=== PATIENT | female | born 1940 | race Caucasian/White ===

== ENCOUNTER → 2017-09-11 | Outpatient (CLI) | payer MEDICARE ==
[~2017-09-11] MED LIST: AEC81 PO; BIMA12.5OS OU; CALC600T12 PO; ERGO400C PO; ISOS30TA6 PO; LORA10TA7 PO; MULT-1203 PO; NITR0.4T SL; PENT100C9 PO; PRAV20TA4 PO; TAMO20TA4 PO; [UNRECOGNIZED DRUG - CODE] OS; [UNRECOGNIZED DRUG - OTHER] PO
== END | disposition home or self-care (01) ==
LOC: RAH 08:54
PROVIDERS: ATTEND Internal Medicine
DX: R92.8 Other abnormal and inconclusive findings on diagnostic imaging of breast (principal); I25.10 Atherosclerotic heart disease of native coronary artery without angina pectoris; I11.0 Hypertensive heart disease with heart failure; I50.43 Acute on chronic combined systolic (congestive) and diastolic (congestive) heart failure; K21.9 Gastro-esophageal reflux disease without esophagitis; E78.5 Hyperlipidemia, unspecified; Z85.3 Personal history of malignant neoplasm of breast; Z98.890 Other specified postprocedural states
CPT/HCPCS: 77065

== ENCOUNTER → 2018-09-15 | Outpatient (CLI) | payer MEDICARE | END | disposition home or self-care (01) | LOC: RAH 14:26 | PROVIDERS: ATTEND Internal Medicine | DX: R92.8 Other abnormal and inconclusive findings on diagnostic imaging of breast (principal); Z85.3 Personal history of malignant neoplasm of breast | CPT/HCPCS: 77065 ==

== ENCOUNTER → 2019-01-06 | Outpatient (CLI) | payer MEDICARE | END | disposition home or self-care (01) | LOC: RAH 08:53 | PROVIDERS: ATTEND Internal Medicine Medical Oncology | DX: K76.0 Fatty (change of) liver, not elsewhere classified (principal); N28.1 Cyst of kidney, acquired | CPT/HCPCS: 76700 ==

== ENCOUNTER 2019-05-16 12:29 | Emergency (ER) | payer MEDICARE ==
[2019-05-17] MEDS ORDERED: BIOT5000 PO (23:02)
[2019-05-17] MEDS ORDERED: OMEG1CAP45 PO (23:02)
[2019-05-17] MEDS ORDERED: CALC-190 PO (23:02)
[2019-05-17] MEDS ORDERED: CHOL100040 PO (23:02)
== END 2019-05-16 15:40 | disposition home or self-care (01) ==
LOC: EDH 12:29
DX: S76.212A Strain of adductor muscle, fascia and tendon of left thigh, initial encounter (principal); I10 Essential (primary) hypertension; Z87.891 Personal history of nicotine dependence; Z98.890 Other specified postprocedural states; X58.XXXA Exposure to other specified factors, initial encounter; Y93.89 Activity, other specified; Y92.89 Other specified places as the place of occurrence of the external cause; Y99.8 Other external cause status
CPT/HCPCS: 72170

== ENCOUNTER 2019-07-16 06:52 | Day surgery (SDC) | payer MEDICARE ==
[2019-07-14 09:05] LABS: BASOPHILS % (AUTO) 0.2 % (0.0-5.0); EOSINOPHILS % (AUTO) 3.4 % (0.0-8.0); HEMATOCRIT 36.8 % (36-48); LYMPHOCYTES % (AUTO) 33.9 % (21.0-51.0); MEAN CORPUSCULAR HEMOGLOBIN 31.1 pg (27.0-33.0); MEAN CORPUSCULAR HGB CONC 32.1 g/dL (32.0-36.0); MEAN CORPUSCULAR VOLUME 96.8 fL (79-99); MONOCYTES % (AUTO) 28.7 % (3.0-13.0); NEUTROPHILS % (AUTO) 33.2 % (40.0-77.0); PLATELET COUNT (AUTO) 248 K/uL (130-400); RED CELL DISTRIBUTION WIDTH 16.8 % (11.0-15.5); WHITE BLOOD COUNT (AUTO) 5.2 K/uL (4.8-10.8)
[2019-07-14 09:16] LABS: INR 1.13 (0.85-1.15); PARTIAL THROMBOPLASTIN TIME 29.2 SEC (26.3-35.5); PROTHROMBIN TIME 11.8 SEC (9.6-11.6)
[2019-07-14 09:17] VITALS: BP 130/79
[2019-07-14 09:24] LABS: CREATININE 1.2 mg/dL (0.5-1.5); POTASSIUM 4.7 mmol/L (3.5-5.1)
[2019-07-14 09:31] LABS: APPEARANCE,URINE Clear (CLEAR); BILIRUBIN,URINE Negative (NEGATIVE); COLOR,URINE Dark Yellow (YELLOW); GLUCOSE, URINE (UA) Negative (NEGATIVE); KETONES,URINE Negative (NEGATIVE); LEUKOCYTE ESTERASE ,URINE Small (NEGATIVE); NITRATE,URINE Negative (NEGATIVE); OCCULT BLOOD,URINE Trace (NEGATIVE); PROTEIN,URINE Trace mg/dL (NEGATIVE); UROBILINOGEN,URINE 0.2 mg/dL (0.2-1.0)
[2019-07-14 09:45] LABS: BACTERIA,URINE Rare /HPF (None Seen); RBC,URINE 0-1 /HPF (0-1); SQUAMOUS EPITHELIAL CELL,UR 0-2 /HPF (0-2); YEAST,URINE BUDDING Few /HPF (None Seen)
--- NOTE | 2019-07-14 13:16 | NUR ---
PER EDUARDO LYNCH. ABNORMAL LABS OK NO NEW ORDERS AT THIS TIME.
[2019-07-16] VITALS (10 sets, daily range): BP systolic 112–141; BP diastolic 41–87
[~2019-07-16] VITALS: Ht 168.9 cm; Wt 69.8 kg
[~2019-07-16 06:52] MED LIST changes: +ANTI1CAP5 PO; +BIOT5000 PO; +CALC-190 PO; -CALC600T12 PO; -ERGO400C PO; -ISOS30TA6 PO; -MULT-1203 PO; -NITR0.4T SL; +OMEG1CAP45 PO; -PENT100C9 PO; -TAMO20TA4 PO; +TIMO5DRO35 OS; -[UNRECOGNIZED DRUG - CODE] OS; -[UNRECOGNIZED DRUG - OTHER] PO
[2019-07-16] MEDS ORDERED: SODIUM CHLORIDE 0.9% 1000ML 1,000 ML IV ONE (08:18)
[2019-07-16] MEDS ORDERED: HEPARIN SODIUM 1000UNIT/ML 10ML VIAL ONE (08:46)
[2019-07-16] MEDS ORDERED: IOHEXOL-350 50ML VIAL IV ONE (08:46)
[2019-07-16] MEDS ORDERED: SODIUM BICARB 50MEQ 50ML VIAL ONE (08:46)
[2019-07-16] MEDS ORDERED: NITROGLYCERIN 2 MG/VIAL VIAL IV ONE (08:47)
[2019-07-16] MEDS ORDERED: FENTANYL CITRATE PF 50 MCG/1 ML 2ML VIAL ONE (08:47)
[2019-07-16] MEDS ORDERED: MIDAZOLAM HCL 1 MG/ML 2ML VIAL ONE (08:47)
[2019-07-16] MEDS ORDERED: IOHEXOL 350 MG/ML 100ML INFUS..BTL IV ONE ×2 (08:47→09:48)
[2019-07-16] MEDS ORDERED: LIDOCAINE HCL 2% 20ML ONE (08:47)
[2019-07-16] MEDS ORDERED: BIVALIRUDIN 250 MG/VIAL IV ONE (09:14)
--- NOTE | 2019-07-16 15:30 | NUR ---
REPORT GIVEN BY WASHINGTON PRINCE RN PT DRESSING DRY AND INTACT
--- NOTE | 2019-07-16 16:00 | NUR ---
PT LEFT VIA WHEELCHAIR IN PVT CAR, D/C INSTRUCTION GIVEN TO SPOUSE WITH F/U APPT. V/S STABLE DRESSING DRY AND INTACT DP PRESENT BILATAL.
== END 2019-07-16 16:00 | disposition home or self-care (01) ==
LOC: DAH 06:52
PROVIDERS: ATTEND Internal Medicine Cardiovascular Disease
DX: I11.0 Hypertensive heart disease with heart failure (principal); I50.22 Chronic systolic (congestive) heart failure; I25.810 Atherosclerosis of coronary artery bypass graft(s) without angina pectoris; I25.2 Old myocardial infarction; E78.5 Hyperlipidemia, unspecified; K21.9 Gastro-esophageal reflux disease without esophagitis; M79.10 Myalgia, unspecified site; Z95.1 Presence of aortocoronary bypass graft; Z95.810 Presence of automatic (implantable) cardiac defibrillator; Z95.2 Presence of prosthetic heart valve; Z86.19 Personal history of other infectious and parasitic diseases; Z98.890 Other specified postprocedural states; Z79.82 Long term (current) use of aspirin; Z79.899 Other long term (current) drug therapy; Z82.49 Family history of ischemic heart disease and other diseases of the circulatory system
CPT/HCPCS: 36415; 71045; 80048; 81001; 85025; 85610; 85730; 93005; 93455; 93567; A4215 ×2; A4216; A4221; A4222; A4223 ×3; A4606; A4663; C1760; C1894 ×2; J1644; J2250; J3010; J3490 ×3; J7030; Q9965; Q9967 ×3; 99156; 99157; J0583

== ENCOUNTER → 2019-09-21 | Outpatient (CLI) | payer MEDICARE | END | disposition home or self-care (01) | LOC: RAH 09:59 | PROVIDERS: ATTEND Internal Medicine Medical Oncology | DX: C50.912 Malignant neoplasm of unspecified site of left female breast (principal); Z85.3 Personal history of malignant neoplasm of breast | CPT/HCPCS: 77065 ==

== ENCOUNTER → 2020-10-03 | Outpatient (CLI) | payer MEDICARE | END | disposition home or self-care (01) | LOC: RAH 10:35 | PROVIDERS: ATTEND Internal Medicine Medical Oncology | DX: C50.411 Malignant neoplasm of upper-outer quadrant of right female breast (principal); Z90.11 Acquired absence of right breast and nipple | CPT/HCPCS: 77065 ==

== ENCOUNTER → 2021-04-17 | Outpatient (CLI) | payer MEDICARE | END | disposition home or self-care (01) | LOC: SHCH 09:51 | PROVIDERS: ATTEND Internal Medicine Cardiovascular Disease | DX: I08.1 Rheumatic disorders of both mitral and tricuspid valves (principal); I25.10 Atherosclerotic heart disease of native coronary artery without angina pectoris; I10 Essential (primary) hypertension; E78.5 Hyperlipidemia, unspecified; Z95.2 Presence of prosthetic heart valve | CPT/HCPCS: 93306; 93356 ==

== ENCOUNTER → 2021-07-25 | Outpatient (CLI) | payer MEDICARE | END | disposition home or self-care (01) | LOC: RAH 13:38 | PROVIDERS: ATTEND Internal Medicine Medical Oncology | DX: E04.2 Nontoxic multinodular goiter (principal); R06.09 Other forms of dyspnea; R91.8 Other nonspecific abnormal finding of lung field; M47.815 Spondylosis without myelopathy or radiculopathy, thoracolumbar region | CPT/HCPCS: 71046; 76536 ==

== ENCOUNTER → 2022-03-05 | Outpatient (CLI) | payer MEDICARE ==
[~2022-03-05] MED LIST changes: +EZET10TA13 PO; +METO50TA9 PO; -PRAV20TA4 PO; +SIMV-342 PO; +SPIR25TA6 PO; +TORS10TA18 PO
[2022-03-05 12:45] LABS: CREATININE 1.6 mg/dL (0.5-1.5); MAGNESIUM 2.6 mg/dL (1.80-2.40); POTASSIUM 4.2 mmol/L (3.5-5.1)
== END | disposition home or self-care (01) ==
LOC: LAB 10:43
PROVIDERS: ATTEND Internal Medicine Cardiovascular Disease
DX: I11.0 Hypertensive heart disease with heart failure (principal); I50.22 Chronic systolic (congestive) heart failure
CPT/HCPCS: 36415; 80048; 83735; 83880

== ENCOUNTER → 2022-04-01 | Outpatient (CLI) | payer MEDICARE ==
[~2022-04-01] MED LIST changes: -BIMA12.5OS OU; +BIMA2.5D4 OU; +CEPH500B PO; +LUTE40CA PO; +PRAV20TA4 PO; -SIMV-342 PO; +SPIR25TA PO; -SPIR25TA6 PO; -TORS10TA18 PO; +TORS40TA PO; +[UNRECOGNIZED DRUG - CODE] SL
[2022-04-01 12:21] LABS: BASOPHILS % (AUTO) 0.5 % (0.0-5.0); EOSINOPHILS % (AUTO) 1.3 % (0.0-8.0); HEMATOCRIT 35.6 % (36-48); LYMPHOCYTES % (AUTO) 28.8 % (21.0-51.0); MEAN CORPUSCULAR HEMOGLOBIN 33.7 pg (27.0-33.0); MEAN CORPUSCULAR HGB CONC 34.3 g/dL (32.0-36.0); MEAN CORPUSCULAR VOLUME 98.3 fL (79-99); NEUTROPHILS % (AUTO) 41.8 % (40.0-77.0); PLATELET COUNT (AUTO) 311 K/uL (130-400); RED BLOOD CELL COUNT(AUTO) 3.62 MIL/uL (4.00-5.50); RED CELL DISTRIBUTION WIDTH 13.2 % (11.0-15.5); WHITE BLOOD COUNT (AUTO) 6.2 K/uL (4.8-10.8)
[2022-04-01 12:44] LABS: ALBUMIN 4.1 g/dL (3.5-5.0); CREATININE 1.7 mg/dL (0.5-1.5); POTASSIUM 3.5 mmol/L (3.5-5.1); TOTAL PROTEIN, SERUM 8.8 g/dL (6.0-8.3)
[2022-04-01 13:05] LABS: B-TYPE NATRIURETIC PEPTIDE 65 pg/mL (0-100)
== END | disposition home or self-care (01) ==
LOC: LAB 08:53
PROVIDERS: ATTEND Internal Medicine Cardiovascular Disease
DX: I50.22 Chronic systolic (congestive) heart failure (principal); Z95.2 Presence of prosthetic heart valve
CPT/HCPCS: 36415; 80053; 80061; 83880; 85025

== ENCOUNTER → 2022-04-30 | Outpatient (CLI) | payer MEDICARE | END | disposition home or self-care (01) | LOC: RAH 10:32 | PROVIDERS: ATTEND Internal Medicine Endocrinology, Diabetes & Metabolism | DX: E04.2 Nontoxic multinodular goiter (principal) | CPT/HCPCS: 76536 ==

== ENCOUNTER → 2022-05-13 | Outpatient (CLI) | payer MEDICARE ==
[2022-05-13 15:06] LABS: CREATININE 1.7 mg/dL (0.5-1.5); POTASSIUM 3.8 mmol/L (3.5-5.1)
== END | disposition home or self-care (01) ==
LOC: LAB 13:51
PROVIDERS: ATTEND Internal Medicine Cardiovascular Disease
DX: I11.0 Hypertensive heart disease with heart failure (principal); I50.32 Chronic diastolic (congestive) heart failure
CPT/HCPCS: 36415; 80048; 83880

== ENCOUNTER → 2022-10-11 | Outpatient (CLI) | payer MEDICARE ==
[~2022-10-11] MED LIST changes: -TIMO5DRO35 OS; +TIMO5DRO47 OS
[2022-10-11 12:53] LABS: CREATININE 1.5 mg/dL (0.5-1.5); MAGNESIUM 2.4 mg/dL (1.80-2.40); POTASSIUM 4.4 mmol/L (3.5-5.1)
== END | disposition home or self-care (01) ==
LOC: LAB 08:08
PROVIDERS: ATTEND Internal Medicine Cardiovascular Disease
DX: I11.0 Hypertensive heart disease with heart failure (principal); I50.32 Chronic diastolic (congestive) heart failure
CPT/HCPCS: 36415; 80048; 83735; 83880

== ENCOUNTER → 2023-01-14 | Outpatient (CLI) | payer MEDICARE | END | disposition home or self-care (01) | LOC: RAH 13:49 | PROVIDERS: ATTEND Internal Medicine Medical Oncology | DX: D24.2 Benign neoplasm of left breast (principal); R92.1 Mammographic calcification found on diagnostic imaging of breast; Z85.3 Personal history of malignant neoplasm of breast | CPT/HCPCS: 77065 ==

== ENCOUNTER → 2023-04-08 | Outpatient (CLI) | payer MEDICARE ==
[~2023-04-08] MED LIST changes: -EZET10TA13 PO; +EZET10TA81 PO
[2023-04-08 12:24] LABS: BASOPHILS # (AUTO) 0.04 K/uL (0.00-0.20); BASOPHILS % (AUTO) 0.7 % (0.0-5.0); EOSINOPHILS # (AUTO) 0.14 K/uL (0.00-0.70); EOSINOPHILS % (AUTO) 2.4 % (0.0-8.0); HEMATOCRIT 41.9 % (36-48); IMMATURE GRANULOCYTE ABSOLUTE 0.03 K/uL (0-1); LYMPHOCYTES # (AUTO) 1.8 K/uL (1.0-4.8); LYMPHOCYTES % (AUTO) 30.3 % (21.0-51.0); MEAN CORPUSCULAR HEMOGLOBIN 34.1 pg (27.0-33.0); MEAN CORPUSCULAR HGB CONC 33.7 g/dL (32.0-36.0); MEAN CORPUSCULAR VOLUME 101.5 fL (79-99); MONOCYTES # (AUTO) 1.6 K/uL (0.1-1.0); NEUTROPHILS # (AUTO) 2.3 K/uL (1.8-7.7); NEUTROPHILS % (AUTO) 39.1 % (40.0-77.0); PLATELET COUNT (AUTO) 180 K/uL (130-400); RED BLOOD CELL COUNT(AUTO) 4.13 MIL/uL (4.00-5.50); RED CELL DISTRIBUTION WIDTH 13.8 % (11.0-15.5); WHITE BLOOD COUNT (AUTO) 5.8 K/uL (4.8-10.8)
[2023-04-08 12:52] LABS: BAND NEUTROPHILS % (MANUAL) 8 % (0-2); BASOPHILS % (MANUAL) 1 % (0-2); EOSINOPHILS % (MANUAL) 2 % (1-6); LYMPHOCYTES % (MANUAL) 30 % (22-44); MAN.DIFF COMMENT-IMPRESSION MANUAL DIFFERENTIAL; MONOCYTES % (MANUAL) 32 % (2-9); PLATELET MORPHOLOGY COMMENT ADEQUATE; SEGMENTED NEUTROPHILS % 27 % (40-70); TOTAL CELLS COUNTED 100; WBC MORPHOLOGY CONSISTENT W/DIFF
[2023-04-08 12:54] LABS: ALBUMIN 4.4 g/dL (3.5-5.0); BILIRUBIN,TOTAL 0.5 mg/dL (0.2-1.0); CREATININE 1.3 mg/dL (0.5-1.5); POTASSIUM 4.3 mmol/L (3.5-5.1); TOTAL PROTEIN, SERUM 8.1 g/dL (6.0-8.3)
== END | disposition home or self-care (01) ==
LOC: LAB 08:58
PROVIDERS: ATTEND Internal Medicine Cardiovascular Disease
DX: I11.0 Hypertensive heart disease with heart failure (principal); E78.5 Hyperlipidemia, unspecified; I50.42 Chronic combined systolic (congestive) and diastolic (congestive) heart failure
CPT/HCPCS: 36415; 80053; 80061; 83880; 85025

== ENCOUNTER → 2023-04-29 | Outpatient (CLI) | payer MEDICARE | END | disposition home or self-care (01) | LOC: RAH 12:23 | PROVIDERS: ATTEND Internal Medicine Endocrinology, Diabetes & Metabolism | DX: E04.2 Nontoxic multinodular goiter (principal) | CPT/HCPCS: 76536 ==

== ENCOUNTER 2023-08-12 05:54 | Day surgery (SDC) | payer MEDICARE ==
[2023-08-08 14:07] LABS: BASOPHILS # (AUTO) 0.04 K/uL (0.00-0.20); BASOPHILS % (AUTO) 0.7 % (0.0-5.0); EOSINOPHILS # (AUTO) 0.28 K/uL (0.00-0.70); EOSINOPHILS % (AUTO) 5.2 % (0.0-8.0); IMMATURE GRANULOCYTE ABSOLUTE 0.02 K/uL (0-1); LYMPHOCYTES # (AUTO) 1.7 K/uL (1.0-4.8); LYMPHOCYTES % (AUTO) 32.2 % (21.0-51.0); MEAN CORPUSCULAR HEMOGLOBIN 33.8 pg (27.0-33.0); MEAN CORPUSCULAR VOLUME 99.5 fL (79-99); MONOCYTES # (AUTO) 1.4 K/uL (0.1-1.0); MONOCYTES % (AUTO) 25.5 % (3.0-13.0); NEUTROPHILS # (AUTO) 1.9 K/uL (1.8-7.7); PLATELET COUNT (AUTO) 143 K/uL (130-400); RED BLOOD CELL COUNT(AUTO) 4.02 MIL/uL (4.00-5.50); RED CELL DISTRIBUTION WIDTH 13.6 % (11.0-15.5); WHITE BLOOD COUNT (AUTO) 5.4 K/uL (4.8-10.8)
[2023-08-08 14:19] VITALS: BP 150/70; PULSE 79; RESP 18
[2023-08-08 14:23] LABS: INR 0.94 (0.85-1.15); PROTHROMBIN TIME 11.1 SEC (9.6-11.6)
[2023-08-08 14:24] LABS: PARTIAL THROMBOPLASTIN TIME 29.1 SEC (26.3-35.5)
[2023-08-08 14:25] LABS: CREATININE 1.4 mg/dL (0.5-1.5); POTASSIUM 4.2 mmol/L (3.5-5.1)
[~2023-08-12] VITALS: Ht 167.6 cm; Wt 73.5 kg
[2023-08-12] VITALS (10 sets, daily range): BP systolic 107–133; BP diastolic 45–70; PULSE 60–83; RESP 14–15
[~2023-08-12 05:54] MED LIST changes: -AEC81 PO; -ANTI1CAP5 PO; +ASPI-1443 PO; -BIOT5000 PO; +BIOTIN PO; -CALC-190 PO; +CALC-866 PO; -CEPH500B PO; +EMPA10TA PO; +EZET10TA48 PO; -EZET10TA81 PO; +FLUT15.845 NS; -METO50TA9 PO; +MULT-1367 PO; -OMEG1CAP45 PO; +PRAS25CA9 PO; -PRAV20TA4 PO; +PRAV40TA3 PO; -SPIR25TA PO; +SPIR25TA6 PO; -TIMO5DRO47 OS; +TIMO5DRO47 OU; +TORS20TA4 PO; -TORS40TA PO; +VITAMIN K2 PO; -[UNRECOGNIZED DRUG - CODE] SL
[2023-08-12] MEDS: 0.9%NACL 1000ML 1,000 ML IV ONE (06:29)
[2023-08-12] MEDS ORDERED: LIDOCAINE HCL 1% MDV 50ML VIAL ONE (07:13)
[2023-08-12] MEDS ORDERED: MIDAZOLAM HCL 1 MG/ML 2ML VIAL ONE ×2 (07:14→07:51)
[2023-08-12] MEDS ORDERED: MEPERIDINE-PF 25 MG/ML SYG ONE ×2 (07:14→07:51)
[2023-08-12] MEDS ORDERED: CEFAZOLIN SODIUM 1 GM VIAL ONE ×2 (07:14→07:34)
[2023-08-12] MEDS ORDERED: BUPIVACAINE/PF 0.25% 30ML VIAL IJ ONE (07:29)
[2023-08-12] MEDS ORDERED: BACITRACIN 1 EACH PACKET TP ONE (08:35)
[2023-08-12] MEDS ORDERED: TRAM50TA4 PO (08:56)
[2023-08-12] MEDS ORDERED: ACETAMINOPHEN WITH CODEINE 1 TAB TAB PO PRN (09:00)
[2023-08-12] MEDS ORDERED: ACETAMINOPHEN 500 MG TABLET PO PRN (09:00)
== END 2023-08-12 12:05 | disposition home or self-care (01) ==
LOC: DAH 05:54
PROVIDERS: ATTEND Internal Medicine Cardiovascular Disease
DX: Z45.02 Encounter for adjustment and management of automatic implantable cardiac defibrillator (principal); I49.01 Ventricular fibrillation; I49.5 Sick sinus syndrome; I11.0 Hypertensive heart disease with heart failure; I50.43 Acute on chronic combined systolic (congestive) and diastolic (congestive) heart failure; I25.2 Old myocardial infarction; E78.5 Hyperlipidemia, unspecified; Z79.01 Long term (current) use of anticoagulants; Z79.899 Other long term (current) drug therapy; Z86.73 Personal history of transient ischemic attack (TIA), and cerebral infarction without residual deficits; Z95.5 Presence of coronary angioplasty implant and graft; Z90.11 Acquired absence of right breast and nipple; Z82.49 Family history of ischemic heart disease and other diseases of the circulatory system; Z98.890 Other specified postprocedural states; Z87.891 Personal history of nicotine dependence; Z95.2 Presence of prosthetic heart valve; Z79.82 Long term (current) use of aspirin
CPT/HCPCS: 80048; 85025; 85610; 85730; 36415; 93005; 33264; 82948 ×2; C1882; J0690 ×2; J7030; J0665; J2250 ×2; J2175 ×2; J3490; A4215; A6251; A4222; A4221; A4663; A4216; A6258; A4606; A4223 ×3; 99156; 99157

== ENCOUNTER → 2024-01-16 | Outpatient (CLI) | payer MEDICARE ==
[~2024-01-16] MED LIST changes: -FLUT15.845 NS; +TRAM50TA4 PO
== END | disposition home or self-care (01) ==
LOC: RAH 07:39
PROVIDERS: ATTEND Internal Medicine Medical Oncology
DX: R92.1 Mammographic calcification found on diagnostic imaging of breast (principal); R92.322 Mammographic fibroglandular density, left breast; R92.30 Dense breasts, unspecified; Z85.3 Personal history of malignant neoplasm of breast
CPT/HCPCS: 77065

== ENCOUNTER → 2024-04-28 | Outpatient (CLI) | payer MEDICARE ==
--- NOTE | 2024-04-28 17:28 | HMCIMG ---
US THYROID/NECK HISTORY: Goiter COMPARISON: 04/29/2023 TECHNIQUE: Thyroid ultrasound study was performed. FINDINGS: Right thyroid lobe measures 3.6 x 1.4 x 1.1 cm. Left thyroid lobe measures 3.3 x 1.4 x 1.1 cm. Thyroid gland is heterogeneous. There are bilateral thyroid cysts and nodules with the largest on the right measuring 7 mm and on the left measuring 6 mm. There is also a left upper pole complex thyroid nodule measuring 1.2 x 1.5 x 2.1 cm unchanged in size. IMPRESSION: 1. Bilateral thyroid cysts and nodules grossly unchanged in size.
== END | disposition home or self-care (01) ==
LOC: RAH 10:33
PROVIDERS: ATTEND Internal Medicine Endocrinology, Diabetes & Metabolism
DX: E04.2 Nontoxic multinodular goiter (principal)
CPT/HCPCS: 76536

== ENCOUNTER → 2024-06-21 | Outpatient (CLI) | payer MEDICARE ==
[2024-06-21 14:22] LABS: CREATININE 1.3 mg/dL (0.5-1.0); POTASSIUM 4.4 mmol/L (3.5-5.1)
== END | disposition home or self-care (01) ==
LOC: LAB 10:38
PROVIDERS: ATTEND Internal Medicine Cardiovascular Disease
DX: I25.10 Atherosclerotic heart disease of native coronary artery without angina pectoris (principal); Z95.2 Presence of prosthetic heart valve
CPT/HCPCS: 36415; 80048; 83735; 83880

== ENCOUNTER → 2024-09-20 | Outpatient (CLI) | payer MEDICARE ==
[2024-09-20 12:14] LABS: BASOPHILS # (AUTO) 0.03 K/uL (0.00-0.20); BASOPHILS % (AUTO) 0.5 % (0.0-5.0); EOSINOPHILS # (AUTO) 0.36 K/uL (0.00-0.70); HEMATOCRIT 41.3 % (36-48); IMMATURE GRANULOCYTE ABSOLUTE 0.01 K/uL (0-1); LYMPHOCYTES # (AUTO) 1.4 K/uL (1.0-4.8); LYMPHOCYTES % (AUTO) 23.4 % (21.0-51.0); MEAN CORPUSCULAR HEMOGLOBIN 33.9 pg (27.0-33.0); MEAN CORPUSCULAR HGB CONC 32.4 g/dL (32.0-36.0); MEAN CORPUSCULAR VOLUME 104.6 fL (79-99); MONOCYTES # (AUTO) 1.4 K/uL (0.1-1.0); MONOCYTES % (AUTO) 23.2 % (3.0-13.0); NEUTROPHILS # (AUTO) 2.8 K/uL (1.8-7.7); NEUTROPHILS % (AUTO) 46.7 % (40.0-77.0); PLATELET COUNT (AUTO) 213 K/uL (130-400); RED BLOOD CELL COUNT(AUTO) 3.95 MIL/uL (4.00-5.50); RED CELL DISTRIBUTION WIDTH 13.1 % (11.0-15.5)
[2024-09-20 12:36] LABS: ALBUMIN 4.6 g/dL (3.5-5.0); BILIRUBIN,TOTAL 0.8 mg/dL (0.2-1.0); CREATININE 1.2 mg/dL (0.5-1.0); MAGNESIUM 2.3 mg/dL (1.80-2.40); POTASSIUM 3.9 mmol/L (3.5-5.1); TOTAL PROTEIN, SERUM 8.1 g/dL (6.0-8.3)
== END ==
LOC: LAB 09:47
PROVIDERS: ATTEND Internal Medicine Cardiovascular Disease
DX: I10 Essential (primary) hypertension (principal); I34.2 Nonrheumatic mitral (valve) stenosis
CPT/HCPCS: 36415; 80053; 80061; 83735; 83880; 85025

== ENCOUNTER → 2025-01-26 | Outpatient (CLI) | payer MEDICARE ==
[~2025-01-26] MED LIST changes: -PRAV40TA3 PO; +PRAV40TA62 PO
--- NOTE | 2025-01-27 11:43 | HMCIMG ---
DIGITAL left breast DIAGNOSTIC MAMMOGRAM Technique: The digital mammographic examination of left breasts in craniocaudal, mediolateral oblique views along with CAD was obtained. History: This is a 84 years year-old female 2, para1 Ab1 . Patient has history of right breast cancer with mastectomy with lymph node dissection which was performed in 2013. Patient has no family history of breast cancer. Patient has no complaint Reference:Prior left breast mammogram from 01/16/2024, 04/29/2023, 01/07/2022 are available for comparison.. Breast composition: Breast composition B: There are scattered areas of fibroglandular density. Finding: The digital mammographic examination of left breast in craniocaudal and mediolateral oblique view along with CAD demonstrates mildly dense. There are multiple scattered macrocalcification and linear calcification there is a cluster of dystrophic calcifications seen in the left breast upper-outer quadrant. The left axilla has a neurostimulator unit in place.. There is no evidence of any dendritic mass, cluster microcalcification or architectural distortion. The retromammary fat appears to be normal. IMPRESSION: Unchanged from prior mammography. NO RADIOGRAPHIC EVIDENCE OF MALIGNANT CHANGES. WE WOULD RECOMMEND ANNUAL FOLLOW UP WITH TOMOSYNTHESIS UNLESS OTHERWISE CLINICALLY INDICATED. FINAL ASSESSMENT: ACR: BI-RAD- 2. Benign: Also a negative assessment; finding(s) benign abnormalities. Management: Routine mammography screening. Likelihood of Cancer: Essentially 0% likelihood of malignancy. NOTE: IF A WORK-UP OF THIS PATIENT LEADS TO A BIOPSY, PLEASE FORWARD A COPY OF THE PATHOLOGY REPORT TO OUR OFFICE REQUIRED BY [facility] EFFECTIVE FEBRUARY 23, 1994. A NEGATIVE MAMMOGRAM SHOULD NOT PRECLUDE BIOPSY OF A CLINICALLY PALPABLE SUSPICIOUS MASS, 10% OF BREAST CANCERS ARE MAMMOGRAPHICALLY OCCULT. THIS MAMMOGRAPHY FACILITY IS FULLY ACCREDITED BY THE [employer]OD AND [employer]UG [employer] (FDA). THANK YOU FOR THIS REFERRAL.
== END | disposition home or self-care (01) ==
LOC: RAH 10:15
PROVIDERS: ATTEND Internal Medicine Medical Oncology
DX: C50.411 Malignant neoplasm of upper-outer quadrant of right female breast (principal); R92.322 Mammographic fibroglandular density, left breast; Z90.10 Acquired absence of unspecified breast and nipple; Z85.3 Personal history of malignant neoplasm of breast
CPT/HCPCS: 77065